=== PATIENT | male | born 1940 | race Caucasian/White ===

== ENCOUNTER 2022-04-17 23:43 | Emergency (ER) | payer MEDICARE ==
[~2022-04-17] VITALS: Ht 175.3 cm; Wt 95.5 kg
[2022-04-18] VITALS (8 sets, daily range): BP systolic 102–127; BP diastolic 60–79
[2022-04-18] MEDS ORDERED: TRAMADOL HCL50 MG PO (01:50)
[2022-04-18] MEDS ORDERED: ORPHENADRINE100 MG PO (01:50)
== END 2022-04-18 02:15 | disposition home or self-care (01) ==
LOC: ED 23:43
DX: S20.211A Contusion of right front wall of thorax, initial encounter (principal); S20.311A Abrasion of right front wall of thorax, initial encounter; I10 Essential (primary) hypertension; I48.91 Unspecified atrial fibrillation; W19.XXXA Unspecified fall, initial encounter